=== PATIENT | female | born 1995 | race Caucasian/White ===

== ENCOUNTER 2019-01-09 18:28 | Emergency (ER) | payer OTHER, SELFPAY ==
[2019-01-09 18:38] VITALS: BP 134/84; PULSE 122; RESP 16; TEMP 37; O2SAT 98
--- NOTE | 2019-01-09 19:06 | ED.GENADUL_ITS ---
Discharge Plan Disposition Patient Disposition: HOME Condition: Improving Discharge Details Chief Complaint: Laceration Clinical Impression: Facial laceration Primary Care Provider: Rita Couch ED Provider: Juan Franco Home Meds and New Rx's Prescriptions: No Action norgestimate-ethinyl estradiol [Culpeper-Linyah] 0.25-35 mg-mcg Tablet PO RF: 0 Discharge Instructions Instructions: Facial Laceration (ED) Additional Instructions: The absorbable sutures will dissolve over approximately 7 to 10 days time. Return for fever, redness, discharge from the wound or any other acute concerns. Medical Decision Making Pleasant and healthy 23-year-old female who lacerated her right cheek on the edge of a metal table. She was seen at her place of work, cleansed, received a tetanus booster. She now presents for evaluation of possible repair. She is anesthetized, irrigated, explored in a bloodless field without evidence of forei gn body. Repaired with 4 interrupted 6-0 absorbable suture. Good wound apposition. Dressing placed. She is stable, improved and appropriate for outpatient management. HPI General Mode of arrival: ambulatory . Date/Time Provider Initiated Documentation: 01/09/19 18:44 . Limitations to Documentation: no limitations . Information obtained by: patient . History of Present Illness 23 year old F presents to the emergency department with the chief complaint of Right cheek laceration, described as mild, Quality is described as dull, and is localized to the face and right. Patient reports no radiation. Patient started experiencing this hour(s) and it has been constant. No relieving factors improve symptom(s), No exacerbating factors reported . Patient notes no other symptoms.. Patient did receive the following treatments prior to arrival, other (Received tetanus booster prior) Related Data Home Medications Medication Instructions Recorded Confirmed norgestimate-ethinyl estradiol tab PO 01/09/19 [Culpeper-Linyah] Allergies Allergy/AdvReac Type Severity Reaction Status Date / Time No Known Allergies Allergy Unverified 01/09/19 18:43 General Stated Complaint: Laceration FARHAT: 4 Review of Systems Narrative: No other injury. No numbness or tingling. 4 systems reviewed and otherwise negative Exam Narrative Exam Narrative: GEN: awake, alert, oriented 3. Pleasant, well groomed, interactive. HEAD: Normocephalic, atraumatic ENT: Mucous membranes moist, right maxilla with overlying 1.5 cm laceration. Oropharynx unremarkable, External ear exam unremarkable EYES: PERRL, EOMI Neuro: Grossly normal neurologic exam, conversant, interactive. Psych: Speech fluent, thoughts congruent, affect normal Course Vital Signs Vital signs: Vital Signs Temperature 37 C 01/09/19 18:38 Pulse 122 H 01/09/19 18:38 Respiratory Rate 16 01/09/19 18:38 Blood Pressure 134/84 01/09/19 18:38 Pulse Oximetry 98 01/09/19 18:38 Temperature 37 C 01/09/19 18:38 Temperature Source Temporal Artery Scan 01/09/19 18:38 Pulse 122 H 01/09/19 18:38 Respiratory Rate 16 01/09/19 18:38 Blood Pressure 134/84 01/09/19 18:38 Pulse Oximetry 98 01/09/19 18:38 Oxygen Delivery Method Room Air 01/09/19 18:38 Oxygen Flow Rate 0 01/09/19 18:38 Pain Level 5 01/09/19 18:38 Procedures Laceration Laceration 1: Site: face Side (If applicable): right Size (cm): 1.5 Description: linear Local Anesthetic: Lidocaine 1% Amount of anesthesia used (mL): 1 Pre-repair: wound explored, irrigated extensively and deep structures intact Skin layer closed with: vicryl Size (cm): 6-0 Number of sutures: 4 Technique: simple, interrupted
== END 2019-01-09 19:10 | disposition home or self-care (01) ==
PROVIDERS: Emergency Provider Emergency Medicine; PCP Pediatrics
DX: S01.412A Laceration without foreign body of left cheek and temporomandibular area, initial encounter (principal); W45.8XXA Other foreign body or object entering through skin, initial encounter; Y99.0 Civilian activity done for income or pay
CPT/HCPCS: 12011; 99283

== ENCOUNTER 2020-01-14 17:45 | Emergency (ER) | payer OTHER, SELFPAY ==
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
[2020-01-14 17:48] VITALS: BP 132/97; PULSE 105; RESP 22; TEMP 36.4; O2SAT 99
[2020-01-14 18:38] LABS: Bilirubin Negative (Negative); Blood Moderate (Negative); Clarity Cloudy (Clear); Glucose Negative (Negative); Ketones 15 mg/dL (Negative); Leukocyte Esterase Moderate (Negative); Nitrite Negative (Negative); Specific Gravity >= 1.030 (1.005-1.025); Urobilinogen 0.2 EU/dL (Up TO 0.2)
[2020-01-14 18:57] LABS: C & S Indicated? No/Sq. Contamination; Epithelial Cells Moderate HPF (Negative); WBC >50 HPF (0-5)
[2020-01-14] MEDS: Ciprofloxacin 250 MG TAB PO ×2 (19:23)
[2020-01-14] MEDS: Phenazopyridine 100 MG TAB, 2 TABS/BTL PO (19:23)
== END 2020-01-14 19:25 | disposition home or self-care (01) ==
PROVIDERS: Emergency Provider Physician Assistant
DX: N39.0 Urinary tract infection, site not specified (principal); R30.0 Dysuria
CPT/HCPCS: 81025; 99283; 81003; 81015

== ENCOUNTER 2020-12-31 20:34 | Outpatient (REF) | payer OTHER, SELFPAY | END 2020-12-31 20:35 | disposition home or self-care (01) | LOC: LBN 20:34 | PROVIDERS: Visit Provider Physician Assistant Medical | DX: R30.0 Dysuria (principal) | CPT/HCPCS: 87077; 87086; 87186 ==

== ENCOUNTER 2022-04-17 17:35 | Outpatient (REF) | payer BC, SELFPAY ==
[2022-04-17 21:25] LABS: Bacteria Many HPF (Negative); Casts Negative LPF (Negative); Crystals Negative HPF (Negative); Epithelial Cells Moderate HPF (Negative); Mucus Negative (Negative); Other Cells Negative (Negative); WBC 20-50 HPF (0-5)
[2022-04-18 06:18] LABS: C & S Indicated? C&S Done As Ordered
== END 2022-04-17 17:36 | disposition home or self-care (01) ==
LOC: LBN 17:35
PROVIDERS: Visit Provider Physician Assistant Medical
DX: R30.0 Dysuria (principal)
CPT/HCPCS: 87077; 81015; 87086; 87186

== ENCOUNTER 2023-03-19 16:11 | Outpatient (REF) | payer BC, SELFPAY ==
[2023-03-19 21:24] LABS: Source Nasal/Nares
[2023-03-19 22:22] LABS: COVID-19 PCR Negative (Negative)
== END 2023-03-19 16:12 | disposition home or self-care (01) ==
LOC: LBN 16:11
PROVIDERS: Visit Provider Physician Assistant Medical
DX: J02.0 Streptococcal pharyngitis (principal); B34.9 Viral infection, unspecified; Z20.822 Contact with and (suspected) exposure to COVID-19
CPT/HCPCS: 87635; 87070

== ENCOUNTER 2023-10-16 21:19 | Outpatient (REF) | payer SELFPAY | END 2023-10-16 21:20 | disposition home or self-care (01) | LOC: LBN 21:19 | PROVIDERS: Visit Provider Family Medicine | DX: N39.0 Urinary tract infection, site not specified (principal) | CPT/HCPCS: 87086 ==

== ENCOUNTER 2023-11-05 10:23 | Emergency (ER) | payer SELFPAY ==
[2023-11-05 10:36] VITALS: BP 147/100; PULSE 98; RESP 16; TEMP 36.6; O2SAT 98
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
--- NOTE | 2023-11-05 11:50 | DI.RAD_ITS ---
Exam(s) XR HAND LT COMPLETE EXAM: XR HAND LT COMPLETE CLINICAL HISTORY: 1st digit and navicular pain. TECHNIQUE: 2D digital imaging was performed. Three views. COMPARISON: No exams were available for comparison FINDINGS: BONES: No acute fracture is present. No bony destructive lesion is seen. JOINTS: No dislocation present. No significant degenerative changes. SOFT TISSUE: Normal. IMPRESSION: Unremarkable radiographs of the left hand. DATA REPOSITORY: RADIATION DOSE DELIVERED:
[2023-11-05 11:56] VITALS: BP 132/88; PULSE 95; RESP 18; O2SAT 98
[2023-11-05 13:11] VITALS: BP 128/62; PULSE 88; RESP 18; O2SAT 99
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
== END 2023-11-05 13:13 | disposition home or self-care (01) ==
PROVIDERS: Emergency Provider Physician Assistant
DX: S60.012A Contusion of left thumb without damage to nail, initial encounter (principal); S06.0XAA Concussion with loss of consciousness status unknown, initial encounter; R51.9 Headache, unspecified; V40.5XXA Car driver injured in collision with pedestrian or animal in traffic accident, initial encounter
CPT/HCPCS: 99284; 70450; 73130; 99283

== ENCOUNTER 2024-12-23 16:14 | Outpatient (REF) | payer SELFPAY | END 2024-12-23 16:15 | disposition home or self-care (01) | LOC: LBN 16:14 | PROVIDERS: Visit Provider Nurse Practitioner Family | DX: N30.01 Acute cystitis with hematuria (principal) | CPT/HCPCS: 87077; 87086; 87186 ==